=== PATIENT | female | born 1995 | race Caucasian/White ===

== ENCOUNTER → 2017-03-15 | Outpatient (CLI) | payer BC, OTHER ==
--- NOTE | 2017-03-15 10:36 | RAD ---
DATE: March 15, 2017 EXAM: DIGITAL DIAGNOSTIC BILATERAL, SONOGRAPHY BREAST BILATERAL HISTORY: Bilateral breast pain. Cloudy left nipple discharge for one week. Left breast lump. COMPARISON: Baseline study. This study was interpreted with the benefit of Computerized Aided Detection (CAD). FINDINGS: The breast parenchyma heterogeneiously dense, which could reduce sensitivity of mammography. There are no dominant suspicious masses, suspicious microcalcifications or evidence of architectural distortion. A metallic BB is placed on the palpable lump of the upper-outer quadrant of left breast as indicated by the patient. No underlying focal mammographic abnormality is seen here. LEFT BREAST SONOGRAPHY: High-resolution sonography of all 4 quadrants and the retroareolar region of left breast were performed. No focal sonographic abnormality is seen. No retroareolar ductal ectasia is seen. No focal sonographic abnormality is seen in the region of the palpable lump of the 2:00 position of the left breast as indicated by the patient. RIGHT BREAST SONOGRAPHY: High-resolution sonography of all 4 quadrants and the retroareolar region of the right breast were performed. No focal sonographic abnormality is seen. No retroareolar ductal ectasia is evident. IMPRESSION: No radiographic indicators for malignancy. BI-RADS CATEGORY: 1 NEGATIVE RECOMMENDED FOLLOW-UP: CLIN FOLLOW UP IMAGING CLINICALLY INDICATED PQRS compliance statement: Not applicable. The patient is 21 years old. Mammography is a sensitive method for finding small breast cancers, but it does not detect them all and is not a substitute for careful clinical examination. A negative mammogram does not negate a clinically suspicious finding and should not result in delay in biopsying a clinically suspicious abnormality. "Our facility is accredited by the [employer] Mammography [employer]." The patient's breast density may affect the ability of mammography to detect breast cancer. There are 4 categories of breast density, A, B, C and D. Breast density A means that most of the breast tissue is replaced with adipose tissue and therefore is not dense. Breast density B means that the breast tissue is mildly dense and scattered. Breast density C means that the breast tissue is heterogeneously dense. Breast density D means that the breast tissue is very dense. Breast densities especially C and D may decrease the sensitivity of mammography to detect breast cancer. Therefore, the patient may benefit from 3-D breast mammography (3D breast tomography) as a part of their screening mammogram. Insurance may or may not pay for this additional imaging. The patient's breast density based on today's mammogram is category C.
== END | disposition home or self-care (01) ==
LOC: MAMMO 09:02
PROVIDERS: ATTEND Obstetrics & Gynecology
DX: N64.4 Mastodynia (principal); N64.52 Nipple discharge
CPT/HCPCS: 76641; G0204; 77066

== ENCOUNTER 2017-06-22 17:09 | Emergency (ER) | payer BC, OTHER ==
[~2017-06-22] VITALS: Ht 167.6 cm; Wt 88.0 kg
[2017-06-22 17:30] VITALS: BP 112/56
[2017-06-22] MEDS ORDERED: KETOROLAC 60 MG/2 ML INJ. IM ONE (17:45)
--- NOTE | 2017-06-22 18:08 | PHYS DOC ---
Past Medical History Past Medical History: No Pertinent History Past Surgical History: , Other Additional Past Surgical Histo: wisdom teeth Smoking: Cigarettes Alcohol Use: Occasionally Drug Use: None Adult General Chief Complaint Chief Complaint: Neck Pain HPI HPI Patient is a 21 year old female presents to the emergency department with complaints of neck pain and headache for 7 days. She states one week ago she awakened with neck pain that radiated over the top of her head. She states that she went to an urgent care clinic managed by where she had a rapid flu and strep both of which were negative. She was then sent to emergency department where she reports that she had a spinal tap and lab work drawn and was discharged home after a 12 hour monitoring session in the emergency Department. Patient that she was discharged home with Tylenol ibuprofen. Patient states that she has had persistent neck pain with a mild headache. She states that she has no blurred vision, no double vision, no cough, no fever, no shortness of breath, no abdominal pain, no vomiting, no diarrhea. She has no known injury. Review of Systems Review of Systems Constitutional: Denies fever or chills [] Eyes: Denies change in visual acuity, redness, or eye pain [] HENT: Denies nasal congestion or sore throat [] Respiratory: Denies cough or shortness of breath [] Cardiovascular: No additional information not addressed in HPI [] GI: Denies abdominal pain, nausea, vomiting, bloody stools or diarrhea [] : Denies dysuria or hematuria [] Musculoskeletal: Neck pain Integument: Denies rash or skin lesions [] Neurologic: Mild headache without focal weakness or loss of sensory Endocrine: Denies polyuria or polydipsia [] Current Medications Current Medications Current Medications Medications (Trade) Dose Ordered Sig/[facility] Start Time Stop Time Status Last Admin Dose Admin Ketorolac Tromethamine (Toradol Im) 60 mg 1X ONCE 06/22/17 17:45 06/22/17 17:46 DC 06/22/17 18:21 60 MG Orphenadrine Citrate (Norflex) 60 mg 1X ONCE 06/22/17 19:15 06/22/17 19:16 DC 06/22/17 19:15 60 MG Allergies Allergies Allergies Coded Allergies Type Severity Reaction Last Updated Verified acetaminophen Adverse Reaction Unknown Nausea and Vomiting 06/22/17 Yes hydrocodone Adverse Reaction Unknown Nausea and Vomiting 06/22/17 Yes Physical Exam Physical Exam Constitutional: Well developed, well nourished, no acute distress, non-toxic appearance. [] HENT: Normocephalic, atraumatic, bilateral external ears normal, oropharynx moist, no oral exudates, nose normal. [] Eyes: PERRLA, EOMI, conjunctiva normal, no discharge. [] Neck: Paracervical tenderness without midline tenderness. She does have full range of motion without apparent difficulty or increasing pain. No meningeal signs Cardiovascular:Heart rate regular rhythm, no murmur [] Lungs & Thorax: Bilateral breath sounds clear to auscultation [] Abdomen: Bowel sounds normal, soft, no tenderness, no masses, no pulsatile masses. [] Skin: Warm, dry, no erythema, no rash. [] Back: No tenderness, no CVA tenderness. [] Extremities: No tenderness, no cyanosis, no clubbing, ROM intact, no edema. [] Neurologic: Alert and oriented X 3, normal motor function, normal sensory function, no focal deficits noted. Nerves II through XII are grossly intact. [] Psychologic: Affect normal, judgement normal, mood normal. [] Current Patient Data Vital Signs Vital Signs Date Time Temp Pulse Resp B/P (MAP) Pulse Ox O2 Delivery O2 Flow Rate FiO2 06/22/17 17:30 97.7 83 18 97 Room Air 97.7 EKG EKG [] Radiology/Procedures Radiology/Procedures [] Course & Med Decision Making Course & Med Decision Making Pertinent Labs and Imaging studies reviewed. (See chart for details) []Patient received Toradol 60 mg IM and Norflex 60 mg IM for relief of discomfort. I spoke with aly Beltran or ashlie [facility] who relayed to me the results from a patient visit on June 16. Patient had a CBC, CMP and UA,rapid strep and influenza and test all negative or within normal limits. Her lactic acid was 0.6. Blood cultures are negative at day 2 of growth. Cerebral spinal fluid from her spinal tap was negative. Noting the patient has relief of her discomfort in this emergency department she will be discharged with a prescription for ibuprofen and Flexeril and plan for follow- up in family medicine. Patient and her family member in agreement with this plan and she is discharged from the emergency department in stable condition. Patient was advised return to the emergency Department for new symptoms or concerns or worsening of current condition. Dragon Disclaimer Dragon Disclaimer This electronic medical record was generated, in whole or in part, using a voice recognition dictation system. Departure Departure Impression: Primary Impression: Tension headache Disposition: 01 HOME, SELF-CARE Condition: STABLE Referrals: PERLA WRIGHT MD (PCP) [facility] Patient Instructions: Tension Headache Additional Instructions: Return to the emergency department if symptoms or concerns or worsening of current condition. Scripts Naproxen (NAPROSYN) 500 Mg Tablet 500 MG PO BID, #20 TAB Prov: CATHY ALMEIDA APRN 06/22/17 Cyclobenzaprine Hcl (CYCLOBENZAPRINE HCL) 10 Mg Tablet 10 MG PO TID, #20 TAB Prov: CATHY ALMEIDA APRN 06/22/17 CATHY ALMEIDA APRN Jun 22, 2017 18:07
[2017-06-22] MEDS ORDERED: ORPHENADRINE CITRATE 60 MG/2 ML VIAL. IM ONE (19:15)
[2017-06-22] MEDS ORDERED: NAPR-683 PO (19:28)
[2017-06-22] MEDS ORDERED: CYCL10TA2 PO (19:28)
== END 2017-06-22 19:38 | disposition home or self-care (01) ==
LOC: ER 17:09
DX: G44.209 Tension-type headache, unspecified, not intractable (principal); F17.210 Nicotine dependence, cigarettes, uncomplicated; Z88.5 Allergy status to narcotic agent; Z88.6 Allergy status to analgesic agent
CPT/HCPCS: 96372; 99284; J1885; J2360

== ENCOUNTER 2021-06-19 17:03 | Emergency (ER) | payer BC, OTHER ==
[~2021-06-19] VITALS: Ht 162.6 cm; Wt 94.6 kg
[~2021-06-19 17:03] MED LIST: CYCL10TA2 PO; NAPR-683 PO
[2021-06-19 18:24] LABS: BILIRUBIN,URINE NEGATIVE (NEG); CLARITY,URINE CLEAR; COLOR,URINE YELLOW; NITRITE,URINE NEGATIVE (NEG); PROTEIN,URINE NEGATIVE (NEG-TRACE)
[2021-06-19 18:31] LABS: BACTERIA,URINE FEW /HPF (0-FEW); RBC,URINE 0 /HPF (0-2)
--- NOTE | 2021-06-19 18:53 | PHYS DOC ---
Past Medical History Past Medical History: No Pertinent History Additional Past Medical Histor: HEART MURMER Past Surgical History: , Other Additional Past Surgical Histo: wisdom teeth, KNEE SCOPE Smoking Status: Former Smoker Alcohol Use: Occasionally Drug Use: None General Adult EDM: Chief Complaint: ABDOMINAL PAIN HPI: HPI: Patient is a 25-year-old female presents to the emergency department complaining of blood in her urine since this morning. Patient complains of pressure with urination describing it as a dull pain. Patient reports this feels like her last urinary tract infection she had in 2018. Patient denies nausea, vomiting or diarrhea. Denies abdominal pain denies vaginal discharge, denies STI concerns, denies rashes to her vagina. Denies other physical complaints or physical concerns. Review of Systems: Review of Systems: 14 body systems of review of systems have been reviewed. See HPI for pertinent positives and negative responses, otherwise all other systems are negative, nonpertinent or noncontributory. Constitutional: Negative except as outlined in HPI above. Skin: Negative except as outlined in HPI above. Eyes: Negative except as outlined in HPI above. HENT: Negative except as outlined in HPI above. Respiratory: Negative except as outlined in HPI above. Cardiovascular: Negative except as outlined in HPI above. GI: Negative except as outlined in HPI above. : Negative except as outlined in HPI above. Musculoskeletal: Negative except as outlined in HPI above. Integument: Negative except as outlined in HPI above. Neurologic: Negative except as outlined in HPI above. Endocrine: Negative except as outlined in HPI above. Lymphatic: Negative except as outlined in HPI above. Psychiatric: Negative except as outlined in HPI above. Heart Score: C/O Chest Pain: No Risk Factors: Risk Factors: DM, Current or recent (<one month) smoker, HTN, HLP, family history of CAD, obesity. Risk Scores: Score 0 - 3: 2.5% MACE over next 6 weeks - Discharge Home Score 4 - 6: 20.3% MACE over next 6 weeks - Admit for Clinical Observation Score 7 - 10: 72.7% MACE over next 6 weeks - Early Invasive Strategies Allergies: Allergies: Allergies Coded Allergies Type Severity Reaction Last Updated Verified acetaminophen Adverse Reaction Unknown Nausea and Vomiting 06/22/17 Yes hydrocodone Adverse Reaction Unknown Nausea and Vomiting 06/22/17 Yes Physical Exam: PE: Constitutional: Well developed, well nourished, no acute distress, non-toxic appearance. 25-year-old female in no apparent distress. HENT: Normocephalic, atraumatic. Eyes: Conjunctiva normal, no discharge. Neck: Normal range of motion, no stridor. Cardiovascular: No cyanosis appreciated, distal cap refill less than 2 seconds. Lungs & Thorax: Patient is in no respiratory distress, no audible adventitious lung sounds appreciated. Abdomen: Nontender, no abnormalities noted. Skin: Warm, dry, no erythema, no rash. Back: No tenderness, no deformities. Extremities: No tenderness, no cyanosis, no clubbing, ROM intact, no edema. Neurologic: Alert and oriented X 3, normal motor function, normal sensory function, no focal deficits noted. Psychologic: Affect normal, judgement normal, mood normal. Current Patient Data: Labs: Laboratory Tests Test 06/19/21 17:10 06/19/21 17:18 Urine Collection Type Unknown Urine Color Yellow Urine Clarity Clear Urine pH 6.0 (<5.0-8.0) Urine Specific D Hanis 1.020 (1.000-1.030) Urine Protein Negative mg/dL (NEG-TRACE) Urine Glucose (UA) Negative mg/dL (NEG) Urine Ketones (Stick) Negative mg/dL (NEG) Urine Blood Negative (NEG) Urine Nitrite Negative (NEG) Urine Bilirubin Negative (NEG) Urine Urobilinogen Dipstick 1.0 mg/dL (0.2 mg/dL) Urine Leukocyte Esterase Trace (NEG) Urine RBC 0 /HPF (0-2) Urine WBC 11-20 /HPF (0-4) Urine Squamous Epithelial Cells Few /LPF Urine Bacteria Few /HPF (0-FEW) Urine Mucus Marked /LPF POC Urine HCG, Qualitative Hcg negative (Negative) Vital Signs: Vital Signs Date Time Temp Pulse Resp B/P (MAP) Pulse Ox O2 Delivery O2 Flow Rate FiO2 06/19/21 17:06 98.1 70 15 125/74 (91) 99 Room Air 98.1 EKG: EKG: [] Radiology/Procedures: Radiology/Procedures: PATIENT: RENATE LYNN CACCOUNT: [id number] : 1995 LOCATION: ER AGE: 25 SEX: F EXAM STATUS: REG ER ORD. PHYSICIAN: TREVA COLLINS APRN REASON: Right lower quadrant pain, McBurney's point tenderness. PROCEDURE: CT ABD PELV W/ IV CONTRST ONLY INDICATION: Reason: Right lower quadrant pain, McBurney's point tenderness. / Spl. Instructions: OMNI 300 75 ML IV / History: COMPARISON: None. TECHNIQUE: Axial CT images were obtained through the abdomen and pelvis with intravenous contrast. One or more of the following individualized dose reduction techniques were utilized for this examination: 1. Automated exposure control; 2. Adjustment of the mA and/or kV according to patient size; 3. Use of iterative reconstruction technique. FINDINGS: Vascular: No abdominal aortic aneurysm. Hepatobiliary: Liver is low density. Pancreas: No peripancreatic edema. Spleen: Enlarged. Approximately 14 cm. Renal: Mild prominence of the extrarenal pelvis bilaterally. Kidneys enhance symmetrically. Bladder: Mild prominence of the urinary bladder wall. Gastrointestinal: Appendix does not appear dilated. No dilated loops of bowel to suggest obstruction. Small fat-containing umbilical hernia. IMPRESSION: * No evidence of bowel obstruction or appendicitis. * Mild prominence of the wall of a portion of the urinary bladder. Could be from lack of distention but would correlate with symptoms since mild cystitis could also have this appearance. * Spleen is enlarged. Electronically signed by: Chandan Fischer MD (06/19/2021 8:19 PM) [id number] Course & Med Decision Making: Course & Med Decision Making Pertinent Labs and Imaging studies reviewed. (See chart for details) 25-year-old female, vital signs reviewed, presents emergency department concerning urinary tract infection. Physical exam concerning for urinary tract infection versus other acute abdominal process, will order urinalysis assay and test related to patient's statement of consistency of similar symptoms with last urinary tract infection. The patient is not , her urine is not infected, upon reevaluation of the patient and more focused abdominal examination, patient does have rebound tenderness with McBurney's point tenderness, does report pain is a dull pain currently rating at a 2 out of 10. Patient reports normal bowel movements daily. No Angel sign appreciated. Will order CBC, CMP, CT abdomen pelvis with IV contrast rule out appendicitis versus other abdominal process. Patient CT abdomen pelvis unremarkable for acute appendicitis, does have concern for cystitis, with patient's statement of urinary tract infection similar signs and symptoms we will treat prophylactically for simple cystitis. Discussed findings with patient, ED planning, prescription for antibiotics and side effects patient gave verbal understanding of and is amenable to ED discharge planning. Discussed with the patient all findings and diagnostic testing as well as the n eed to follow-up with their primary care provider for further evaluation and treatment or return to the ED if any new or worsening symptoms. Strict return precautions were also discussed at length, the patient voiced understanding and agreement with the discharge planning. The patient was nontoxic in appearance, in no apparent distress, and hemodynamically stable at the time of disposition. Incisive Surgical Disclaimer: Incisive Surgical Disclaimer: This electronic medical record was generated, in whole or in part, using a voice recognition dictation system. Departure Departure Impression: Primary Impression: Abnormal urination Disposition: HOME / SELF CARE / HOMELESS Condition: GOOD Referrals: NO PCP (PCP) Patient Instructions: Urinary Tract Infection Additional Instructions: You were seen today in the emergency department for symptoms similar to your previous urinary tract infections. Your urine did not show specific infection however the CT of your abdomen showed signs of bladder infection, with your symptoms and CT findings will treat prophylactically for simple cystitis please take medications as directed. Please follow-up with your primary care physician soon. I have attached a list of area primary physicians that you may see, please choose 1 to establish primary care. Thank you for visiting our Emergency Department. It was a pleasure taking care of you today in the emergency department and we appreciate you trusting us with your care. If any additional problems come up don't hesitate to return to visit us. Please follow up with your primary care provider so they can plan additional care if needed and know about the problem that you had. If symptoms worsen come back to the Emergency Department. Any concerning symptoms that start such as chest pain, shortness of air, weakness or numbness on one side of the body, running high fevers or any other concerning symptoms return to the ER. You have been tested for or diagnosed with COVID-19. It is an infection caused by a new type of coronavirus. COVID-19 will cause cold-like or mild flu symptoms in most. It can cause more severe symptoms like problems breathing in some. There is no treatment for COVID-19. The body will clear the infection over time. Self-care will help to ease discomfort. Steps to Take: Self-Care Rest as needed. Healthy habits may help you feel better. Steps include: Choose healthy foods including fruits and vegetables. Drink water throughout the day. Get plenty of sleep each night. If you smoke, try to quit. It may ease breathing. Avoid alcohol. Keep Others Healthy The virus can spread to others. Droplets are released every time you sneeze or cough. The droplets can get into the mouth, nose, or eyes of people near you and lead to infection. To lower the chances of spreading COVID-19 to others: Stay at home until your doctor has said it is safe to leave. If you tested positive this will mean staying isolated until both of the following are true: At least 7 days have passed since the start of illness. You are free of fever for at least 72 hours without the use of medicine. During this time: - Avoid public areas, events, or transportation. Do not return to work or school until your doctor has said it is safe to do so. - Call ahead if you need to go to a medical center. Let them know you may have COVID-19. It will help them guide you where to go. They may also ask you to wear a facemask when you come to the office. - If you call for emergency medical services, let them know you may have COVID- 19. While at home: - Try to avoid close contact with others. Stay about 6 feet away. - If possible, spend most of your time in a separate room from others. - Use a face mask if you will be in close contact with others such as sharing a room or vehicle. - Have someone wipe down common surfaces in the home. Use household director of instrumental music every day on areas like doorknobs, counters, or sinks. - Cough or sneeze into a tissue. Throw the tissue away right after use. If a tissue is not available, cough or sneeze into your elbow. - Wash your hands often. Wash them after sneezing or coughing. Use soap and wa ter and wash for at least 20 seconds. Alcohol based hand vacuum cleaner repair person can be used if soap and water is not available. - Do not prepare food for others. Avoid sharing personal items like forks, spoons, or toothbrushes. - Avoid close contact with pets while you are sick. There is no evidence of the virus passing to pets. This is a safety step until more is known about this virus. Isolation can be frustrating. Social interaction can help. Keep in touch with friends and family through phone and tech options. You can still interact with others in your home, just keep a safe distance of about 6 feet. Follow-up: Your doctors office will check in with you to see if there are any changes in your health. You may be asked to keep track of symptoms to share with them. They will also let you know when you are clear to be in public again. Problems to Look Out For: Contact your doctor if your recovery is not going as you expect. Get emergency care if you have problems such as: - Trouble breathing - Nonstop chest pain or pressure - Changes in awareness, confusion, or problems waking - Lips or face have bluish color - Worsening of symptoms If you think you have an emergency, call for emergency medical services right away. As taken from [facility] Phenazopyridine Hcl (PYRIDIUM) 100 Mg Tablet 1 TAB PO TID for urinary discomfort for 2 Days, #6 TAB 0 Refills Prov: TREVA COLLINS APRN 06/19/21 Cephalexin (CEPHALEXIN) 500 Mg Tablet 1 TAB PO BID for UTI for 5 Days, #10 TAB 0 Refills Prov: TREVA COLLINS APRN 06/19/21 TREVA COLLINS APRN Jun 19, 2021 18:53
[2021-06-19 18:54] LABS: BASO # 0.1 x10^3/uL (0.0-0.2); BASO % 1 % (0-3); EOS # 0.1 x10^3/uL (0.0-0.7); EOS % 1 % (0-3); HEMATOCRIT 38.6 % (36.0-47.0); HEMOGLOBIN 13.4 g/dL (12.0-15.5); LYMPH % 30 % (24-48); MEAN CORPUSCULAR HEMOGLOBIN 32 pg (25-35); MEAN CORPUSCULAR HGB CONC 35 g/dL (31-37); MEAN CORPUSCULAR VOLUME 93 fL (79-100); MONO # 0.5 x10^3/uL (0.0-1.1); MONO % 7 % (0-9); NEUT # 4.1 x10^3/uL (1.8-7.7); NEUT % 61 % (31-73); PLATELET COUNT 182 x10^3/uL (140-400); RED BLOOD COUNT 4.14 x10^6/uL (3.50-5.40); RED CELL DISTRIBUTION WIDTH 12.7 % (11.5-14.5); WHITE BLOOD COUNT 6.8 x10^3/uL (4.0-11.0)
[2021-06-19] MEDS ORDERED: IOHEXOL 300 MG/ML 100ML VIAL. IV ONE (19:00)
[2021-06-19 19:07] LABS: CREATININE 0.9 mg/dL (0.6-1.0); GFR 75.7; POTASSIUM 3.5 mmol/L (3.5-5.1)
[2021-06-19 19:12] LABS: ALBUMIN 3.9 g/dL (3.4-5.0); TOTAL BILIRUBIN 0.4 mg/dL (0.2-1.0)
--- NOTE | 2021-06-19 20:22 | RAD ---
INDICATION: Reason: Right lower quadrant pain, McBurney's point tenderness. / Spl. Instructions: OMNI 300 75 ML IV / History: COMPARISON: None. TECHNIQUE: Axial CT images were obtained through the abdomen and pelvis with intravenous contrast. One or more of the following individualized dose reduction techniques were utilized for this examinat ion: 1. Automated exposure control; 2. Adjustment of the mA and/or kV according to patient size; 3 . Use of iterative reconstruction technique. FINDINGS: Vascular: No abdominal aortic aneurysm. Hepatobiliary: Liver is low density. Pancreas: No peripancreatic edema. Spleen: Enlarged. Approximately 14 cm. Renal: Mild prominence of the extrarenal pelvis bilaterally. Kidneys enhance symmetrically. Bladder: Mild prominence of the urinary bladder wall. Gastrointestinal: Appendix does not appear dilated. No dilated loops of bowel to suggest obstruction. Small fat-containing umbilical hernia. IMPRESSION: * No evidence of bowel obstruction or appendicitis. * Mild prominence of the wall of a portion of the urinary bladder. Could be from lack of distention but would correlate with symptoms since mild cystitis could also have this appearance. * Spleen is enlarged. Electronically signed by: Chandan Fischer MD (06/19/2021 8:19 PM) [id number]
[2021-06-19 20:30] VITALS: BP 124/74
[2021-06-19] MEDS ORDERED: CEPH500T PO (20:57)
[2021-06-19] MEDS ORDERED: PHEN100T82 PO (20:57)
== END 2021-06-19 21:10 | disposition home or self-care (01) ==
LOC: ER 17:03
DX: R31.9 Hematuria, unspecified (principal); Z87.891 Personal history of nicotine dependence; Z88.5 Allergy status to narcotic agent; Z88.6 Allergy status to analgesic agent
CPT/HCPCS: 36415; 74177; 80053; 81001; 81025; 83690; 85025; 87086; 99285; Q9967; 87077; 87186; 96361; 96374; 99283-25